=== PATIENT | female | born 1975 | race Caucasian/White ===

== ENCOUNTER → 2016-11-12 | Outpatient (CLI) | payer BC ==
[2006-08-17 19:10] VITALS: PULSE 92; TEMP 98.1
== END ==
LOC: MC.RAD 15:32
DX: Z12.31 Encounter for screening mammogram for malignant neoplasm of breast (principal)

== ENCOUNTER 2019-03-12 05:25 | Day surgery (SDC) | payer OTHER ==
[2019-03-12] VITALS (7 sets, daily range): BP systolic 102–115; BP diastolic 63–72; PULSE 64–75; TEMP 97.4–98.1
[~2019-03-12] VITALS: Ht 162.6 cm; Wt 60.1 kg
[2019-03-12] MEDS ORDERED: SYNTHROID0.125 MG/T PO (06:10)
--- NOTE | 2019-03-12 06:40 | NUR ---
The patient reported upon admission that she has a rash present to her abdomen. She states she thinks it is from a "food allergy or tanning lotion". LILIANA Cohen, along with the nurse, assessed the patient abdomen for the reported rash. There is a red rash present intermittently to most of her abodomen. There appears to be no open area or drainage present at this time. Dr. Keller is to be notified of the patient's rash.
--- NOTE | 2019-03-12 06:50 | NUR ---
Dr. Keller was notified of the patient's current rash to her abodmen. He verbalized understanding, questions were answered and he is going to come assess the patient's abdomen prior to surgery.
--- NOTE | 2019-03-12 09:50 | NUR ---
Pt returned from surgery to outpatient care. Pt easily awaken, denies n/v at this time. Denies wanting pain medication, and states, 'wanting to sleep". Ice chips offered. VS taken ad are WNL. Will continue to monitor progress.
[2019-03-12] MEDS ORDERED: ROXICODONE 55 MG/TAB PO (10:41)
[2019-03-12] MEDS ORDERED: TYLENOL 500MG500 MG PO (10:42)
--- NOTE | 2019-03-12 12:07 | NUR ---
Pt awake, denies pain, has been eating ice chips and asked for water, she wasnt interested in drinking anything else; offered juice, and pop. Offered crackers. She asked that I call her , Holden and provided me his cell phone number. I asked her if she was feeling the need to void, stated 'she wanted to drink more water and then may be ready.' denies N/V. VS WNL will continue to monitor.
--- NOTE | 2019-03-12 12:14 | NUR ---
Pt continuing to eat crackers and states the need to void. Pt stated she 'would like to get dressed and use the bathroom.' Pt helped pt go to the bathroom and change clothes. Fluids unhooked from the int. needle. Denies pain and N/V. will cont to monitor.
--- NOTE | 2019-03-12 12:19 | NUR ---
Pt able to void without difficulty. denies pain or n/v. VS are within limits. monitoring progress.
--- NOTE | 2019-03-12 12:24 | NUR ---
Pt tolerating water and crackers. is starting to feel alittle discomfort, Tylenol 1000mg given PO. IV was dc'd. discharge instructions given and pt voices understanding. pt stated that her abd was itching and wondered if her surgeon would order something for the itch. Dr Keller stated to have pt get topical itch cream and benadryl. Instructed pt to call general practitioner for further needs or issues r/t abdominal rash/itch. pt felt rash was r/t a food allery or elliott cream that she had been using. VS continue to be WNL and cont to deny N/V. DC instructions given and scripts given. [facility] and got into car. Pt was driving them to their home.
== END 2019-03-12 11:40 | disposition home or self-care (01) ==
LOC: SDCO 05:25
DX: K40.30 Unilateral inguinal hernia, with obstruction, without gangrene, not specified as recurrent (principal); E03.9 Hypothyroidism, unspecified; Z83.3 Family history of diabetes mellitus; Z88.1 Allergy status to other antibiotic agents
CPT/HCPCS: C1781; J0690; J1100; J1885; J2405; J2704; J3010; J7120

== ENCOUNTER → 2020-09-05 | Outpatient (CLI) | payer OTHER ==
[~2020-09-05] MED LIST: ROXICODONE 55 MG/TAB PO; SYNTHROID0.125 MG/T PO; TYLENOL 500MG500 MG PO
== END ==
LOC: MC.RAD 07-04 16:00
DX: Z12.31 Encounter for screening mammogram for malignant neoplasm of breast (principal); R92.0 Mammographic microcalcification found on diagnostic imaging of breast

== ENCOUNTER → 2020-09-08 | Outpatient (CLI) | payer OTHER | LOC: MC.RAD 11:00 | DX: R92.0 Mammographic microcalcification found on diagnostic imaging of breast (principal) ==

== ENCOUNTER → 2022-12-10 | Outpatient (CLI) | payer BC | LOC: MC.RAD 10:00 | DX: Z12.31 Encounter for screening mammogram for malignant neoplasm of breast (principal) ==